=== PATIENT | female | born 1965 | race African-American/Black ===

== ENCOUNTER → 2017-03-14 | Day surgery (SDC) | payer OTHER ==
[~2017-03-14] MED LIST: LIDOCAINE 2% PF Vial for OR 5 ML VIAL.; PROPOFOL 20 ML IV
== END | disposition home or self-care (01) ==
LOC: SURG 15:05
DX: Z12.11 Encounter for screening for malignant neoplasm of colon (principal); K64.0 First degree hemorrhoids; Z79.82 Long term (current) use of aspirin
CPT/HCPCS: 45378; J2704

== ENCOUNTER → 2017-05-25 | Outpatient (CLI) | payer OTHER | END | disposition home or self-care (01) | LOC: KCIC MRI 11:45 | DX: R51 Headache (principal); M40.292 Other kyphosis, cervical region; M47.892 Other spondylosis, cervical region | CPT/HCPCS: 70551 ==

== ENCOUNTER → 2017-07-27 | Outpatient (CLI) | payer OTHER | END | disposition home or self-care (01) | LOC: KCIC MAMMO 10:08 | DX: Z12.31 Encounter for screening mammogram for malignant neoplasm of breast (principal) | CPT/HCPCS: 77067 ==

== ENCOUNTER 2017-10-04 09:55 | Emergency (ER) | payer OTHER ==
[2017-10-04] MEDS: IV NORMAL SALINE 1000ML BAG 1,000 ML IV (10:19)
[2017-10-04 10:21] LABS: ADD MAN DIFF? NO
[2017-10-04 10:29] LABS: BASO % 1 % (0-3); EOS # 0.1 x10^3/uL (0.0-0.7); EOS % 2 % (0-3); HEMATOCRIT 40.9 % (36.0-47.0); HEMOGLOBIN 13.6 g/dL (12.0-15.5); LYMPH % 20 % (24-48); MEAN CORPUSCULAR HEMOGLOBIN 27 pg (25-35); MEAN CORPUSCULAR HGB CONC 33 g/dL (31-37); MEAN CORPUSCULAR VOLUME 82 fL (79-100); MONO # 0.5 x10^3/uL (0.0-1.1); MONO % 9 % (0-9); NEUT # 3.2 x10^3uL (1.8-7.7); NEUT % 68 % (31-73); PLATELET COUNT 224 x10^3/uL (140-400); RED CELL DISTRIBUTION WIDTH 12.8 % (11.5-14.5); WHITE BLOOD COUNT 4.8 x10^3/uL (4.0-11.0)
[2017-10-04 10:32] LABS: ANION GAP 8 (6-14); BLOOD UREA NITROGEN 14 mg/dL (7-20); CALCIUM 9.8 mg/dL (8.5-10.1); CARBON DIOXIDE 29 mmol/L (21-32); CHLORIDE 102 mmol/L (98-107); CREATININE 0.7 mg/dL (0.6-1.0); GFR 105.5; GLUCOSE 99 mg/dL (70-99); POTASSIUM 3.7 mmol/L (3.5-5.1); SODIUM 139 mmol/L (136-145)
[2017-10-04 10:42] LABS: TROPONINI < 0.017 ng/mL (0.000-0.055)
[2017-10-04 13:54] LABS: TROPONINI < 0.017 ng/mL (0.000-0.055)
== END 2017-10-04 14:28 | disposition home or self-care (01) ==
LOC: ER 09:55
DX: R53.1 Weakness (principal); R42 Dizziness and giddiness; R55 Syncope and collapse; F32.9 Major depressive disorder, single episode, unspecified
CPT/HCPCS: 36415; 80048; 84484; 85025; 93005; 96360; 99285-25; J7030

== ENCOUNTER → 2018-03-28 | Outpatient (CLI) | payer BC, OTHER ==
[2017-10-04 14:10] VITALS: BP 145/63
[~2018-03-28] MED LIST changes: +CAFF200T13 PO; +GADOBUTROL 7.5 MMOL/7.5 ML VIAL IV ONE; -LIDOCAINE 2% PF Vial for OR 5 ML VIAL.; -PROPOFOL 20 ML IV; +[UNRECOGNIZED DRUG - CODE] RC
--- NOTE | 2018-03-28 16:56 | KCIC ---
MRI Brain with and without contrast History: Headache, abnormal MRI Technique: Multiplanar, multi sequential pre and postcontrast MR imaging was performed of the brain. Comparison: May 25, 2017 Findings: Not associated with enhancement, there is again round focus of centrally T2 hyperintense signal with peripheral rim of T2 hypointense signal of the right anterior vic about 0.8 cm transverse by 0.7 cm AP by about 0.8 cm cc with associated signal blooming on the gradient echo sequence, not associated with edema. Morphology and size are similar. No other hemosiderin deposition is identified of the brain parenchyma. There is no new intra-axial mass effect, midline shift, extra-axial fluid collection. There is no nodular parenchymal or leptomeningeal enhancement. There is no new significant signal abnormality of the brain parenchyma. There is no evidence of recent infarct. There is preservation of the major arterial intracranial flow voids at the skull base. There is disconjugate gaze. The paranasal sinuses and the mastoid air cells are overall aerated. There is focus of nonenhancing T2 hyperintense signal of the right parietal scalp about 1 cm in size as seen previously which may be a sebaceous cyst. There is degenerative disc disease of visualized C3-4 level. Impression: 1. 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 2. There is degenerative disc disease of visualized C3-4 level. Electronically signed by: Mohamud Campbell MD (03/28/2018 4:51 PM) [facility]
== END | disposition home or self-care (01) ==
LOC: KCIC MRI 15:15
PROVIDERS: ATTEND Physician Assistant Medical
DX: R93.0 Abnormal findings on diagnostic imaging of skull and head, not elsewhere classified (principal); R51 Headache; M50.31 Other cervical disc degeneration, high cervical region
CPT/HCPCS: 70553; A9585

== ENCOUNTER 2021-07-27 16:35 | Emergency (ER) | payer BC, OTHER ==
[~2021-07-27] VITALS: Ht 162.6 cm; Wt 54.5 kg
[~2021-07-27 16:35] MED LIST changes: -GADOBUTROL 7.5 MMOL/7.5 ML VIAL IV ONE
[2021-07-27 16:40] VITALS: BP 165/70
[2021-07-27] MEDS ORDERED: KETOROLAC 60 MG/2 ML VIAL. IM ONE (17:15)
[2021-07-27] MEDS ORDERED: ORPHENADRINE CITRATE 60 MG/2 ML VIAL. IM ONE (17:15)
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
[2021-07-27] MEDS ORDERED: CYCL10TA19 PO (18:18)
[2021-07-27] MEDS ORDERED: HYDR-2761 PO (18:19)
[2021-07-27] MEDS ORDERED: IBUP-1007 PO (18:19)
== END 2021-07-27 18:30 | disposition home or self-care (01) ==
LOC: ER 16:35
DX: S22.32XA Fracture of one rib, left side, initial encounter for closed fracture (principal); V69.49XA Driver of heavy transport vehicle injured in collision with other motor vehicles in traffic accident, initial encounter; Y92.488 Other paved roadways as the place of occurrence of the external cause; Y93.89 Activity, other specified; Y99.8 Other external cause status
CPT/HCPCS: 71250; 74176; 96372; 99284; G0238; J1885; J2360